=== PATIENT | male | born 1955 | race Two or more races ===

== ENCOUNTER 2017-01-26 10:37 | Inpatient (IN) | payer MEDICARE, MEDICAID ==
[~2017-01-26] VITALS: Ht 172.7 cm; Wt 77.1 kg
[2017-01-26 11:19] LABS: BASOPHILS % (AUTO) 1.8 % (0.0-2.0); EOSINOPHILS % (AUTO) 2.2 % (0.0-3.0); LYMPHOCYTES % (AUTO) 13.1 % (20.0-45.0); MEAN CORPUSCULAR HEMOGLOBIN 32.3 PG (27.0-31.0); MEAN CORPUSCULAR HGB CONC 32.9 G/DL (32.0-36.0); MEAN CORPUSCULAR VOLUME 98 FL (80-99); MEAN PLATELET VOLUME 8.5 FL (6.5-10.1); MONOCYTES % (AUTO) 10.8 % (1.0-10.0); NEUTROPHILS % (AUTO) 72.2 % (45.0-75.0); PLATELET COUNT 126 K/UL (150-450); RED BLOOD COUNT 3.51 M/UL (4.70-6.10); RED CELL DISTRIBUTION WIDTH 12.8 % (11.6-14.8); WHITE BLOOD COUNT 5.6 K/UL (4.8-10.8)
[2017-01-26] MEDS ORDERED: LACTULOSE20 GM/301 ORAL (11:22)
[2017-01-26] MEDS ORDERED: FUROSEMIDE20 M1 ORAL (11:22)
[2017-01-26] MEDS ORDERED: FISH OIL300 M1 PO (11:22)
[2017-01-26] MEDS ORDERED: ACETAMINOPHEN325 M1 ORAL (11:22)
[2017-01-26] MEDS ORDERED: CATAPRES0.2 MG ORAL (11:22)
[2017-01-26] MEDS ORDERED: TRAMADOL HCL50 MG ORAL (11:22)
[2017-01-26] MEDS ORDERED: BENADRYL25 MG ORAL (11:22)
[2017-01-26] MEDS ORDERED: FOSAMAX70 MG ORAL (11:22)
[2017-01-26] MEDS ORDERED: BUMETANIDE2 MG ORAL (11:22)
[2017-01-26] MEDS ORDERED: NITROGLYCERIN0.4 MG SL (11:22)
[2017-01-26] MEDS ORDERED: ZOFRAN4 M3 ORAL (11:22)
[2017-01-26] MEDS ORDERED: ALLOPURINOL100 M1 ORAL (11:22)
[2017-01-26] MEDS ORDERED: OMEPRAZOLE20 M2 ORAL (11:22)
[2017-01-26] MEDS ORDERED: RENVELA0.8 GM ORAL (11:22)
[2017-01-26] MEDS ORDERED: AMBIEN5 MG ORAL (11:22)
[2017-01-26] MEDS ORDERED: XIFAXAN550 MG ORAL (11:22)
[2017-01-26] MEDS ORDERED: CYCLOBENZAPRINE10 MG ORAL (11:22)
[2017-01-26] MEDS ORDERED: AMLODIPINE BESY10 MG ORAL (11:22)
[2017-01-26 11:35] LABS: ALANINE AMINOTRANSFERASE 14 U/L (3-41); ALBUMIN/GLOBULIN RATIO 1.4 (1.0-2.7); ANION GAP 13 (5-15); ASPARTATE AMINO TRANSFERASE 11 U/L (5-40); CALCIUM 9.5 mg/dL (8.6-10.2); CARBON DIOXIDE 30 mEQ/L (20-30); CHLORIDE 93 mEQ/L (98-107); CREATININE 3.9 mg/dL (0.7-1.2); GLOMERULAR FILTRATION RATE 15.8 mL/min (>60); HEMOLYSIS 8; POTASSIUM 3.9 mEQ/L (3.4-4.9); SODIUM 136 mEQ/L (135-145); TOTAL PROTEIN 6.6 g/dL (6.6-8.7)
[2017-01-26 11:36] LABS: TROPONIN I < 0.30 ng/mL (<=0.30)
[2017-01-26 11:42] VITALS: BP 123/64
[2017-01-26 11:45] LABS: CKMB < 1.5 ng/mL (< 6.7)
[2017-01-26 11:56] LABS: BILIRUBIN,DIRECT 0.4 mg/dL (0.1-0.3)
--- NOTE | 2017-01-26 11:57 | Diagnostic Imaging Report ---
Indication: Chest pain Technique: One view of the chest Comparison: none Findings: No acute infiltrates, effusions, or congestion. Tortuous calcified aorta. Normal heart size. Upper mediastinum unremarkable. Impression: No acute process.
[2017-01-26 12:19] LABS: APPEARANCE,URINE CLEAR; KETONES,URINE 1+ (NEGATIVE); LEUKOCYTE ESTERASE ,URINE 1+ (NEGATIVE); NITRITE,URINE NEGATIVE (NEGATIVE); PH,URINE 6.5 (4.5-8.0); PROTEIN,URINE 2+ (NEGATIVE); UROBILINOGEN,URINE 1 MG/DL (0.0-1.0)
--- NOTE | 2017-01-26 12:55 | Emergency Room Report ---
History of Present Illness General Chief Complaint: Altered Mental Status Source: Medical Record, EMS Present Illness HPI 62YOM BIBEMS from SNF for AMS after HD. No additional info from EMS, facility or patient as to specifics as to "AMS." Patient reportedly has elevated ammonia levels. 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 Allergies: Coded Allergies: No Known Allergies (Unverified , 01/26/17) Patient History Limited by: medical condition, other Past Medical History: other - see my HPI Past Surgical History: none Pertinent Family History: none Social History: Denies: alcohol use, drug use, smoking Immunizations: UTD Reviewed Nursing Documentation: PMH: Agreed, PSxH: Agreed Nursing Documentation-PMH Past Medical History: No History, Except For Hx Hypertension: Yes Hx Dialysis: Yes - T-TH-SAT Hx Cerebrovascular Accident: No - ESRD, CIRRHOSIS, GOUT, ETOH ABUSE Hx Seizures: Yes Review of Systems All Other Systems: limited - patient altered Physical Exam Vital Signs Date Time Temp Pulse Resp B/P Pulse Ox O2 Delivery O2 Flow Rate FiO2 01/26/17 10:52 86 18 116/67 100 Room Air Sp02 EP Interpretation: reviewed, normal General Appearance: normal inspection, well appearing, no apparent distress, alert, GCS 15, non-toxic Head: normocephalic, atraumatic Eyes: bilateral eye EOMI, bilateral eye PERRL ENT: normal ENT inspection, hearing grossly normal, normal voice Neck: normal inspection, full range of motion, supple, no bony tend Respiratory: normal inspection, lungs clear, normal breath sounds, no rhonchi, no respiratory distress, no retraction, no accessory muscle use, no wheezing Cardiovascular #1: regular rate, rhythm, no edema Gastrointestinal: normal inspection, normal bowel sounds, non tender, soft, no guarding, no hernia Genitourinary: no CVA tenderness Musculoskeletal: normal inspection, back normal, normal range of motion, Joseph' s Sign negative Neurologic: normal inspection, alert, oriented x3, responsive, central control room operator III-XII nml as tested, motor strength/tone normal, speech normal Psychiatric: normal inspection, judgement/insight normal, mood/affect normal Skin: normal inspection, normal color, no rash Medical Decision Making Diagnostic Impression: Primary Impression: Altered mental status Qualified Codes: R41.82 - Altered mental status, unspecified Additional Impressions: Hyperammonemia CKD (chronic kidney disease) Qualified Codes: N18.9 - Chronic kidney disease, unspecified ER Course Labs: No leuks. H&h stable. Elevated Ammonia level ECG is NSR with block CXR: No pulm congestion or PNA. UTox negative AMS - likely hyperammonia from known liver failure - Lactulose given in ED - Patient otherwise stable Endorsed to Dr Grant for PANEL/med/surg admit at 1255pm EKG Diagnostic Results Rate: normal, other - 1st degree AV block ST Segments: no acute changes ASA given to the pt in ED: No Rhythm Strip Diag. Results EP Interpretation: yes Rate: 68 Rhythm: NSR, no ectopy Chest X-Ray Diagnostic Results EP Interpretation: Yes Findings: no consolidation, no effusion, no pneumothorax, no acute cardiopulmonary disease Number of Views: 1 Last Vital Signs Date Time Temp Pulse Resp B/P Pulse Ox O2 Delivery O2 Flow Rate FiO2 01/26/17 11:42 69 14 123/64 100 Room Air Status: improved Disposition: ADMITTED INPATIENT Condition: Serious Referrals: NON PHYSICIAN (PCP) JOHNNIE KAPLAN M.D. Jan 26, 2017 12:55
[2017-01-26] MEDS ORDERED: Lactulose 20gm/30ml UDC ORAL ONE (13:00)
[2017-01-26 13:08] LABS: BACTERIA,URINE FEW /HPF; ICTOTEST NEGATIVE; RBC,URINE 0-2 /HPF (0 - 0); SQUAMOUS EPITHELIAL CELL,UR OCCASIONAL /LPF (NONE/OCC)
[2017-01-26 13:57] VITALS: BP 121/61
--- NOTE | 2017-01-26 16:23 | Consultation ---
Consult Note Consult Note asked to eval for dialysis management 62YOM BIBEMS from SNF for AMS after HD. No additional info from EMS, facility or patient as to specifics as to "AMS." Patient reportedly has elevated ammonia levels. 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 Assessment/Plan Encephalopathy acute due to Cirrhosis ESRD on HD Wed- HTN Anemia Plan: renal diet- Lactulose dialysis on monitor BP LILLI VELEZ Jan 26, 2017 16:23
[2017-01-26] MEDS ORDERED: cloNIDine 0.2mg Tab ORAL PRN (16:30)
[2017-01-26 16:39] VITALS: BP 132/74
[2017-01-26] MEDS ORDERED: Lactulose 20gm/30ml UDC ORAL SCH (17:00)
[2017-01-26 17:51] LABS: BASOPHILS % (AUTO) 2.2 % (0.0-2.0); EOSINOPHILS % (AUTO) 2.7 % (0.0-3.0); LYMPHOCYTES % (AUTO) 23.6 % (20.0-45.0); MEAN CORPUSCULAR HEMOGLOBIN 34.8 PG (27.0-31.0); MEAN CORPUSCULAR HGB CONC 35.4 G/DL (32.0-36.0); MEAN CORPUSCULAR VOLUME 98 FL (80-99); MEAN PLATELET VOLUME 9.2 FL (6.5-10.1); NEUTROPHILS % (AUTO) 59.6 % (45.0-75.0); PLATELET COUNT 115 K/UL (150-450); RED BLOOD COUNT 3.22 M/UL (4.70-6.10); RED CELL DISTRIBUTION WIDTH 12.9 % (11.6-14.8); WHITE BLOOD COUNT 5.4 K/UL (4.8-10.8)
--- NOTE | 2017-01-26 17:52 | Consultation ---
Consult Note Consult Note NEUROLOGY CONSULTATION: Full note dictated #[id number] 62 y/o, RH, HM, with PH of cirrhosis of the liver associated with alcohol use and ESRD on HD. He was recently changed from Lactulose to Krisalose. This morning he was taken to the HD unit by his and seemed to be minimally confused. While getting HD he was more confused and agitated and he was thus sent to the [facility] ER. ON EXAM: Mild problems with orientation and memory. Right NLF flat. Globally decreased reflexes. Minimal asterixis. LABS: Ammonia elevated 74 CR 3.9 Mild UTI. IMPRESSION: 1. Mild metabolic encephalopathy most probably related to hepatic and renal dysfunction. 2. Right NLF flattening unexplained. REC: 1. Treatment of hepatic encephalopathy with increased doses of lactulose. 2. Rx of renal dysfunction as per Dr. Josue. 3. W/U for other encephalopathy. 4. CT of brain to exclude intracranial path. Mercy Major M.D., M.S.P.H. MERCY MAJOR Jan 26, 2017 17:52
[2017-01-26 18:11] LABS: ALBUMIN/GLOBULIN RATIO 1.3 (1.0-2.7); CALCIUM 9.5 mg/dL (8.6-10.2); CREATININE 4.3 mg/dL (0.7-1.2); GLOMERULAR FILTRATION RATE 14.1 mL/min (>60); POTASSIUM 3.9 mEQ/L (3.4-4.9); TOTAL PROTEIN 6.5 g/dL (6.6-8.7)
[2017-01-26 18:42] LABS: BILIRUBIN,DIRECT 0.4 mg/dL (0.1-0.3)
[2017-01-26] MEDS: Renvela 800mg Pkt ORAL SCH (18:47)
[2017-01-26] MEDS: Allopurinol 100mg Tab ORAL SCH (18:47)
[2017-01-26] MEDS: Lactulose 20gm/30ml UDC ORAL SCH (18:48)
[2017-01-26 20:00] VITALS: BP 137/67
[2017-01-26] MEDS ORDERED: Lactulose 20gm/30ml UDC ORAL PRN (20:30)
[2017-01-27] VITALS: BP 125/69
--- NOTE | 2017-01-27 01:28 | Consultation ---
DATE OF CONSULTATION: 01/26/2017 NEUROLOGY CONSULTATION CONSULTING PHYSICIAN: Jose Major M.D. REQUESTING PHYSICIAN: Driss Noriega M.D. HISTORY: Mr. Aman Baig is a 62-year-old, right-handed, gentleman, who does have a past history of cirrhosis of the liver associated with alcohol use and end-stage renal disease for which he is on hemodialysis. He was functioning relatively well until this morning when his noticed that when she was driving him to the hemodialysis unit, he was a little confused. Of note is that, he was recently changed from lactulose to Kristalose for his hepatic dysfunction. While he was getting hemodialysis, he became much more confused and agitated and as a result of that, he was sent to the [facility] Emergency Room. On being evaluated in the emergency room, he was noted to have a significant hyperammonemia. Since he has been here, he feels a little better and he feels that the mind is now much more clear. He does not remember the exact details of what happened in the hemodialysis unit. He denies any weakness on one side or the other, numbness on one side or the other, problems with speech, problems with language, problems with vision, or any other neurological symptoms. He also denies any history of prior strokes, seizures, or other neurological problems. PAST MEDICAL HISTORY: Significant for hypertension, anemia of chronic disease, cirrhosis of the liver related to alcoholism, and chronic kidney disease secondary to IgA nephropathy for which he is on hemodialysis on Tuesdays, , and Saturdays. FAMILY HISTORY: Nothing significant with no family history of neurological disease. PERSONAL HISTORY: Home: He lives with his . 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 Habits: He used to drink large quantities of alcohol in the past, but stopped drinking quite a few years ago. He denies the use of tobacco or illicit drugs. PRESENT MEDICATIONS: Includes Norvasc, allopurinol, lactulose, Renvela, Catapres, and Tylenol. PHYSICAL EXAMINATION: GENERAL: He is a well-developed, well-nourished, pleasant gentleman, lying in bed, in no acute distress. VITAL SIGNS: Pulse 66 per minute, blood pressure 132/74 mmHg, respirations 20 per minute, and temperature 97.3 degrees Fahrenheit. HEAD: Normocephalic and atraumatic. NECK: No neck rigidity was observed. EENT: Benign. NEUROLOGICAL EXAMINATION: MENTAL STATUS EXAMINATION: He was awake and alert. He was oriented to person, place, and time except for the exact date. He was able to recall 3/3 words immediately after 1 minute and 3 minutes. He was able to remember presidents Trump and Obama spontaneously, but needed hints to remember through President Barrington. He was unable to remember presidents prior to Barrington. His mathematical skills were fairly good. His visuospatial function was preserved. SPEECH: He had no dysarthria. LANGUAGE: He had no aphasia. Taking into account that [place] is his second language. CRANIAL NERVE EXAMINATION: II: The visual medeiros were intact to confrontation testing. III, IV & : The external ocular movements were full and the pupils 3 mm in diameter, equal, round, regular and reactive to light. V: He had normal facial sensations and the temporales, masseters, and pterygoids function normally. VII: He had flattening of the right nasolabial fold and a mild right VII central facial paresis. VIII: He was able to hear well bilaterally and had no nystagmus. IX: The palate moved symmetrically on phonation. X: He had no hoarseness of voice. XI: The sternocleidomastoids and trapezii functioned normally. XII: The tongue was midline without any fasciculations or atrophy. MOTOR SYSTEM: The tone was normal in all four extremities. Examination of muscle mass revealed no focal wasting. Examination of power revealed grade 5/5 power in all muscle groups tested. SENSORY EXAMINATION: He had intact sensations to pinprick, light touch, and graphesthesia. COORDINATION: He performed well on [id number] and elas-ls-[id number] testing. REFLEXES: Trace+ and bilaterally symmetrical at the biceps, triceps, brachioradialis, and knees, 0 at both ankles. The plantar responses were flexor bilaterally. STANCE: He had a minimally wide-based, but stable stance. GAIT: He walked with a minimally wide-based, but stable gait. ABNORMAL MOVEMENTS: He had a G Trace/4 asterixis of both upper extremities. DIAGNOSTIC IMPRESSION: 1. Mr. Aman Baig is a 62-year-old, right-handed, gentleman, who does have a past history of hypertension, cirrhosis of the liver and end-stage renal disease for which he is hemodialysis dependent, who was recently changed from lactulose to Kristalose. This morning, when he was taken to the hemodialysis unit by his , he was noted to be minimally confused and while getting dialysis, he got significantly more confused and agitated. As a result of that, he was sent to the [facility] Emergency Room. He has improved significantly since then. 2. On neurological examination, at this time, he does demonstrate mild problems with orientation and memory. He also has flattening of the right nasolabial fold and a mild right VII central facial paresis. His deep tendon reflexes are globally diminished. He stands and walks with a minimally wide-base. He also has mild G trace/4 asterixis involving his upper extremities. 3. Laboratory data revealed that his ammonia is elevated to 74. His alkaline phosphatase is elevated to 164. His BUN is normal at 17, but his creatinine is elevated at 3.9. His hemoglobin is down to 11.3 and his urinalysis reveals 1+ leukocyte esterase, 0 to 2 red blood cells, and 2 to 4 white blood cells per high-power field, and a few urinary bacteria. 4. The patient's history, neurological examination, and laboratory data are most compatible with mild metabolic encephalopathy most probably related to hepatic and renal dysfunction. It is unclear, if his mild urinary tract infection could also be contributing to this problem. 5. He does have right nasolabial fold flattening and a mild right VII central facial paresis, which is unexplained at this point in time. RECOMMENDATIONS: 1. Agree with management thus far. 2. Agree with increasing the dose of lactulose to help the patient with the hepatic component of his encephalopathy. 3. Treatment of renal dysfunction as per Dr. Josue. 4. The patient should be worked up thoroughly for other treatable causes of encephalopathy with in addition to laboratory tests already done, a B12 level, folate level, vitamin D level, RPR, glycohemoglobin, TSH, and ESR. 5. A CT scan of the brain without contrast will be ordered to exclude intracranial pathology because of the patient's focal neurological deficit. Thank you for entrusting me with the care of Mr. Baig I shall follow him with you. Jose Major M.D., M.S.P.H. DR: MARINA JOB#: [id number] MTDD
[2017-01-27 04:00] VITALS: BP 123/66
[2017-01-27 07:34] LABS: BASOPHILS % (AUTO) 1.7 % (0.0-2.0); EOSINOPHILS % (AUTO) 5.7 % (0.0-3.0); LYMPHOCYTES % (AUTO) 34.4 % (20.0-45.0); MEAN CORPUSCULAR HEMOGLOBIN 33.3 PG (27.0-31.0); MEAN CORPUSCULAR HGB CONC 33.3 G/DL (32.0-36.0); MEAN CORPUSCULAR VOLUME 100 FL (80-99); MEAN PLATELET VOLUME 9.5 FL (6.5-10.1); MONOCYTES % (AUTO) 15.9 % (1.0-10.0); NEUTROPHILS % (AUTO) 42.4 % (45.0-75.0); PLATELET COUNT 130 K/UL (150-450); RED BLOOD COUNT 3.17 M/UL (4.70-6.10); RED CELL DISTRIBUTION WIDTH 13.1 % (11.6-14.8); WHITE BLOOD COUNT 4.7 K/UL (4.8-10.8)
[2017-01-27 07:53] VITALS: BP 132/72
[2017-01-27 08:00] LABS: HEMOLYSIS 4; IRON 136 ug/dL (59-158); TOTAL IRON BINDING CAPACITY 249 ug/dL (250-400)
[2017-01-27] MEDS: Renvela 800mg Pkt ORAL SCH ×3 (08:06→17:49)
[2017-01-27] MEDS: Allopurinol 100mg Tab ORAL SCH ×2 (08:06→17:49)
[2017-01-27 08:08] LABS: HEMOGLOBIN A1C 4.4 % (< 6.0)
[2017-01-27] MEDS: Lactulose 20gm/30ml UDC ORAL SCH ×3 (08:11→17:49)
[2017-01-27 08:50] LABS: ALBUMIN/GLOBULIN RATIO 1.5 (1.0-2.7); CALCIUM 9.4 mg/dL (8.6-10.2); CREATININE 5.4 mg/dL (0.7-1.2); GLOMERULAR FILTRATION RATE 10.9 mL/min (>60); MAGNESIUM 2.3 mg/dL (1.7-2.5); PHOSPHORUS 4.4 mg/dL (2.5-4.8); POTASSIUM 4.1 mEQ/L (3.4-4.9); TOTAL PROTEIN 5.6 g/dL (6.6-8.7)
--- NOTE | 2017-01-27 10:41 | Diagnostic Imaging Report ---
Indication: Altered metal status Technique: spiral acquisitions obtained through the brain. Angled axial and coronal 5 x 5 mm slices were reconstructed. No IV contrast utilized. Radiation dose was minimized using automated exposure control Total dose length product 1383 mGycm. CTDIvol(s) 70 mGy Comparison: none FINDINGS: No acute hemorrhage or edema. No mass effect or midline shift. There is age-related enlargement of the ventricles and extra axial CSF spaces. There is periventricular deep white matter ischemic change. Normal chase-white differentiation. Visualized orbits are unremarkable. Visualized sinuses are unremarkable. Intact calvarium. There is a cortical calcification in the medial left frontal lobe IMPRESSION: Chronic and age-related changes. Negative for acute intracranial bleed or mass effect Left frontal lobe cortical calcification, may indicate old cysticercosis The CT scanner at [facility] is accredited by the [employer] and the scans are performed using protocols designed to limit radiation exposure to as low as reasonably achievable to attain images of sufficient resolution adequate for diagnostic evaluation
[2017-01-27 11:43] VITALS: BP 128/62
--- NOTE | 2017-01-27 14:44 | General Progress Note ---
Assessment/Plan Status: stable Status Narrative improved Assessment/Plan status: Encephalopathy acute due to Cirrhosis ESRD on HD HTN Anemia Plan: renal diet- Lactulose dialysis on monitor BP Subjective ROS Limited/Unobtainable: No Constitutional: Reports: malaise Allergies: Coded Allergies: No Known Allergies (Unverified , 01/26/17) Objective Last 24 Hour Vital Signs Date Time Temp Pulse Resp B/P Pulse Ox O2 Delivery O2 Flow Rate FiO2 01/27/17 11:43 97.9 73 18 128/62 99 Room Air 01/27/17 08:05 70 132/72 01/27/17 07:53 98.1 70 18 132/72 100 Room Air 01/27/17 04:00 77 01/27/17 04:00 97.9 73 20 123/66 99 Room Air 01/27/17 00:00 75 01/27/17 00:00 98.0 78 20 125/69 100 Room Air 01/26/17 20:00 81 01/26/17 20:00 97.9 78 20 137/67 99 Room Air 01/26/17 16:39 97.3 66 20 132/74 100 Room Air 01/26/17 15:34 98.0 69 14 121/61 100 Room Air 80 Intake and Output 01/26/17 01/27/17 19:00 07:00 Intake Total 250 ml Output Total 20 ml Balance 230 ml Intake Oral 250 ml Output Urine Total 20 ml # Voids 2 # Bowel Movements 2 Laboratory Tests 01/26/17 17:30: White Blood Count 5.4, Red Blood Count 3.22L, Hemoglobin 11.2L, Hematocrit 31.6L , Mean Corpuscular Volume 98, Mean Corpuscular Hemoglobin 34.8H, Mean Corpuscular Hemoglobin Concent 35.4, Red Cell Distribution Width 12.9, Platelet Count 115L, Mean Platelet Volume 9.2, Neutrophils (%) (Auto) 59.6, Lymphocytes ( %) (Auto) 23.6, Monocytes (%) (Auto) 12.0H, Eosinophils (%) (Auto) 2.7, Basophils (%) (Auto) 2.2H, Sodium Level 136, Potassium Level 3.9, Chloride Level 93L, Carbon Dioxide Level 29, Anion Gap 14, Blood Urea Nitrogen 20, Creatinine 4.3H, Estimat Glomerular Filtration Rate 14.1, Glucose Level 92, Calcium Level 9.5, Total Bilirubin 1.2, Direct Bilirubin 0.4H, Aspartate Amino Transf (AST/SGOT) 11, Alanine Aminotransferase (ALT/SGPT) 13, Alkaline Phosphatase 160H, Ammonia 57, Total Protein 6.5L, Albumin 3.7, Globulin 2.8, Albumin/Globulin Ratio 1.3 01/26/17 17:52: Erythrocyte Sedimentation Rate 75H, Vitamin D 25-Hydroxy [Pending], 25-Hydroxy Vitamin D2 [Pending], 25-Hydroxy Vitamin D3 [Pending], Thyroid Stimulating Hormone (TSH) 1.770, Rapid Plasma Reagin Non reactive 01/27/17 05:15: White Blood Count 4.7L, Red Blood Count 3.17L, Hemoglobin 10.5L, Hematocrit 31.7L, Mean Corpuscular Volume 100H, Mean Corpuscular Hemoglobin 33.3H, Mean Corpuscular Hemoglobin Concent 33.3, Red Cell Distribution Width 13.1, Platelet Count 130L, Mean Platelet Volume 9.5, Neutrophils (%) (Auto) 42.4L, Lymphocytes (%) (Auto) 34.4, Monocytes (%) (Auto) 15.9H, Eosinophils (%) (Auto) 5.7H, Basophils (%) (Auto) 1.7, Sodium Level 138, Potassium Level 4.1, Chloride Level 93L, Carbon Dioxide Level 26, Anion Gap 19H, Blood Urea Nitrogen 28H, Creatinine 5.4H, Estimat Glomerular Filtration Rate 10.9, Glucose Level 73L, Calcium Level 9.4, Total Bilirubin 1.0, Aspartate Amino Transf (AST/SGOT) 9, Alanine Aminotransferase (ALT/SGPT) 12, Alkaline Phosphatase 151H, Ammonia 60, Total Protein 5.6L, Albumin 3.4L, Globulin 2.2, Albumin/Globulin Ratio 1.5, Hemoglobin A1c 4.4, Uric Acid 3.0, Phosphorus Level 4.4, Magnesium Level 2.3, Iron Level 136, Total Iron Binding Capacity 249L, Percent Iron Saturation 55H, Unsaturated Iron Binding 113, Ferritin 289H, Gamma Glutamyl Transpeptidase 184H , Triglycerides Level 55, Cholesterol Level 206H, LDL Cholesterol 91, HDL Cholesterol 104H, Cholesterol/HDL Ratio 2.0L, Vitamin B12 Level 923, Folate [ Pending] Height (Feet): 5 Height (Inches): 8.00 Weight (Pounds): 170 General Appearance: no apparent distress Neurologic: other - MS clearing Objective no change in PE LILLI VELEZ Jan 27, 2017 14:44
[2017-01-27 16:02] VITALS: BP 123/66
--- NOTE | 2017-01-27 17:00 | History and Physical Report ---
DATE OF ADMISSION: 01/26/2017 HISTORY OF PRESENT ILLNESS: The patient comes in because of altered mental status and confusion. The patient has elevated ammonia level. The patient also has history of cirrhosis, alcohol use. The patient has also end-stage renal disease, however is on dialysis. So, the patient again admitted for altered mental status after dialysis and hyperammonemia. Denies abdominal pain. Denies nausea, vomiting or diarrhea. No fever or chills. According to the at bedside, the patient has been weak for the last week and there is some ataxia. PAST MEDICAL HISTORY: Significant for end-stage renal disease on hemodialysis, cirrhosis of the liver, hypertension, alcohol abuse, history of gout and osteoporosis. PAST SURGICAL HISTORY: The patient has a history of surgery related to dialysis shunt. The patient has a hemodialysis access on the left forearm. Also, the patient has appendectomy. MEDICATIONS: The patient takes amlodipine, allopurinol, bumetanide, and clonidine. ALLERGIES: The patient allergies to Lasix, but again this could be a adverse drug effect rather than a true allergy. SOCIAL HISTORY: The patient denies history of smoking. He does have history of alcohol abuse. Denies drug abuse. He lives at home with . He is . REVIEW OF SYSTEMS: HEENT: Denies headaches. Respiratory: Denies shortness of breath. Denies cough. Cardiovascular: Denies chest pain. Gastrointestinal: Denies nausea, vomiting, or diarrhea. Denies abdominal pain. Extremities: He does have mild back pain, which is chronic. Central Nervous System: Denies change in vision or speech pattern, but did have confusion and ataxia in lower extremities for the past week. PHYSICAL EXAMINATION: VITAL SIGNS: Temperature is 97.9 degrees, pulse is 78, and blood pressure 137/67. HEENT: PERRLA. NECK: Supple. No lymphadenopathy. CHEST: Clear to auscultation. GASTROINTESTINAL: Soft. Nontender. No organomegaly. Positive bowel sounds. EXTREMITIES: No edema. CENTRAL NERVOUS SYSTEM: Reflexes are equal on both sides. Moves all four extremities. Sensation intact to light touch. Cranial nerves II through XII are intact. LABORATORY AND DIAGNOSTIC DATA: WBC of 5.2, hemoglobin 11.3 and platelet of 126,000. Sodium 138, potassium 4.1, BUN of 20, creatinine 5.4 and glucose of 73. Alkaline phosphatase of 151. ASSESSMENT AND PLAN: Altered mental status. Albumin is elevated. The patient has cirrhosis and electrolyte imbalance. I have asked Dr. Josue, Dr. Major, Dr. Mann and Dr. Heard to see the patient for the above-mentioned diagnoses and treatment and also to rule out any infectious etiology causing altered mental status and Dr. Major also be involved with finding of reason for altered mental status as well. Driss Noriega M.D. DR: MARCIA JOB#: [id number] CC:
--- NOTE | 2017-01-27 17:14 | Neurology Progress Note ---
Interim History Interim History Interim History Mr. Baig feels much better today. The mind has cleared up. He denies any confusion or disorientation. He also denies any weakness, numbness, visual problems or memory problems. He is eager to go home. Review of Systems Neuro Review of Systems Benign. Objective Physical Exam Last Vital Signs Date Time Temp Pulse Resp B/P Pulse Ox O2 Delivery O2 Flow Rate FiO2 01/27/17 16:02 97.5 73 18 123/66 99 Room Air Laboratory Tests Test 01/26/17 17:30 01/26/17 17:52 01/27/17 05:15 White Blood Count 5.4 K/UL (4.8-10.8) 4.7 K/UL (4.8-10.8) L Red Blood Count 3.22 M/UL (4.70-6.10) L 3.17 M/UL (4.70-6.10) L Hemoglobin 11.2 G/DL (14.2-18.0) L 10.5 G/DL (14.2-18.0) L Hematocrit 31.6 % (42.0-52.0) L 31.7 % (42.0-52.0) L Mean Corpuscular Volume 98 FL (80-99) 100 FL (80-99) H Mean Corpuscular Hemoglobin 34.8 PG (27.0-31.0) H 33.3 PG (27.0-31.0) H Mean Corpuscular Hemoglobin Concent 35.4 G/DL (32.0-36.0) 33.3 G/DL (32.0-36.0) Red Cell Distribution Width 12.9 % (11.6-14.8) 13.1 % (11.6-14.8) Platelet Count 115 K/UL (150-450) L 130 K/UL (150-450) L Mean Platelet Volume 9.2 FL (6.5-10.1) 9.5 FL (6.5-10.1) Neutrophils (%) (Auto) 59.6 % (45.0-75.0) 42.4 % (45.0-75.0) L Lymphocytes (%) (Auto) 23.6 % (20.0-45.0) 34.4 % (20.0-45.0) Monocytes (%) (Auto) 12.0 % (1.0-10.0) H 15.9 % (1.0-10.0) H Eosinophils (%) (Auto) 2.7 % (0.0-3.0) 5.7 % (0.0-3.0) H Basophils (%) (Auto) 2.2 % (0.0-2.0) H 1.7 % (0.0-2.0) Sodium Level 136 mEQ/L (135-145) 138 mEQ/L (135-145) Potassium Level 3.9 mEQ/L (3.4-4.9) 4.1 mEQ/L (3.4-4.9) Chloride Level 93 mEQ/L (98-107) L 93 mEQ/L (98-107) L Carbon Dioxide Level 29 mEQ/L (20-30) 26 mEQ/L (20-30) Anion Gap 14 (5-15) 19 (5-15) H Blood Urea Nitrogen 20 mg/dL (7-23) 28 mg/dL (7-23) H Creatinine 4.3 mg/dL (0.7-1.2) H 5.4 mg/dL (0.7-1.2) H Estimat Glomerular Filtration Rate 14.1 mL/min (>60) 10.9 mL/min (>60) Glucose Level 92 mg/dL (74-106) 73 mg/dL (74-106) L Calcium Level 9.5 mg/dL (8.6-10.2) 9.4 mg/dL (8.6-10.2) Total Bilirubin 1.2 mg/dL (0.0-1.2) 1.0 mg/dL (0.0-1.2) Direct Bilirubin 0.4 mg/dL (0.1-0.3) H Aspartate Amino Transf (AST/SGOT) 11 U/L (5-40) 9 U/L (5-40) Alanine Aminotransferase (ALT/SGPT) 13 U/L (3-41) 12 U/L (3-41) Alkaline Phosphatase 160 U/L (40-129) H 151 U/L (40-129) H Ammonia 57 umol/L (16-60) 60 umol/L (16-60) Total Protein 6.5 g/dL (6.6-8.7) L 5.6 g/dL (6.6-8.7) L Albumin 3.7 g/dL (3.5-5.2) 3.4 g/dL (3.5-5.2) L Globulin 2.8 g/dL 2.2 g/dL Albumin/Globulin Ratio 1.3 (1.0-2.7) 1.5 (1.0-2.7) Erythrocyte Sedimentation Rate 75 MM/HR (0-20) H Vitamin D 25-Hydroxy Pending 25-Hydroxy Vitamin D2 Pending 25-Hydroxy Vitamin D3 Pending Thyroid Stimulating Hormone (TSH) 1.770 uIU/mL (0.300-4.500) Rapid Plasma Reagin Non reactive (Non Reactive) Hemoglobin A1c 4.4 % (< 6.0) Uric Acid 3.0 mg/dL (3.0-7.5) Phosphorus Level 4.4 mg/dL (2.5-4.8) Magnesium Level 2.3 mg/dL (1.7-2.5) Iron Level 136 ug/dL (59-158) Total Iron Binding Capacity 249 ug/dL (250-400) L Percent Iron Saturation 55 % (15-50) H Unsaturated Iron Binding 113 ug/dL (112-346) Ferritin 289 ng/mL (10-230) H Gamma Glutamyl Transpeptidase 184 U/L (8-61) H Triglycerides Level 55 mg/dL (< 150) Cholesterol Level 206 mg/dL (< 200) H LDL Cholesterol 91 mg/dL (60-99) HDL Cholesterol 104 mg/dL (> 60) H Cholesterol/HDL Ratio 2.0 (3.3-4.4) L Vitamin B12 Level 923 pg/mL (211-946) Folate Pending Neurologic Exam Objective PHYSICAL EXAMINATION: GENERAL: He is a well-developed, well-nourished, pleasant gentleman, lying in bed, in no acute distress. HEAD: Normocephalic and atraumatic. NECK: No neck rigidity was observed. EENT: Benign. NEUROLOGICAL EXAMINATION: MENTAL STATUS EXAMINATION: He was awake and alert. He was oriented to person, place, and time. He was able to recall 3/3 words immediately after 1 minute and 3 minutes. He was able to remember presidents Trump and Obama spontaneously, but needed hints to remember through President Barrington. He was unable to remember presidents prior to Barrington. His mathematical skills were fairly good. His visuospatial function was preserved. SPEECH: He had no dysarthria. LANGUAGE: He had no aphasia. Taking into account that Telugu is his second language. CRANIAL NERVE EXAMINATION: II: The visual medeiros were intact to confrontation testing. III, IV & : The external ocular movements were full and the pupils 3 mm in diameter, equal, round, regular and reactive to light. V: He had normal facial sensations and the temporales, masseters, and pterygoids function normally. VII: He had flattening of the right nasolabial fold and a mild right VII central facial paresis. VIII: He was able to hear well bilaterally and had no nystagmus. IX: The palate moved symmetrically on phonation. X: He had no hoarseness of voice. XI: The sternocleidomastoids and trapezii functioned normally. XII: The tongue was midline without any fasciculations or atrophy. MOTOR SYSTEM: The tone was normal in all four extremities. Examination of muscle mass revealed no focal wasting. Examination of power revealed grade 5/5 power in all muscle groups tested. SENSORY EXAMINATION: He had intact sensations to pinprick, light touch, and graphesthesia. COORDINATION: He performed well on [id number] and dmpv-ns-[id number] testing. REFLEXES: Trace+ and bilaterally symmetrical at the biceps, triceps, brachioradialis, and knees, 0 at both ankles. The plantar responses were flexor bilaterally. STANCE: He had a minimally wide-based, but stable stance. GAIT: He walked with a minimally wide-based, but stable gait. ABNORMAL MOVEMENTS: He had no asterixis. Impression/Recommendations Diagnostic Impression 1. Mr. Aman Baig is a 62-year-old, right-handed, gentleman, who does have a past history of hypertension, cirrhosis of the liver and end-stage renal disease for which he is hemodialysis dependent, who was recently changed from lactulose to Kristalose. On the morning of 01/26/17 when he was taken to the hemodialysis unit by his , he was noted to be minimally confused and while getting dialysis, he got significantly more confused and agitated. As a result of that, he was sent to the [facility] Emergency Room. 2. He feels much better today. The mind has ckeared up and he feels that he is close to his normal self. 3. On neurological examination, at this time, he does demonstrate mild problems with memory. He also has flattening of the right nasolabial fold and a mild right VII central facial paresis. His deep tendon reflexes are globally diminished. He stands and walks with a minimally wide-base. 4. Laboratory data on my initial evaluation revealed that his ammonia was elevated to 74. His alkaline phosphatase was elevated to 164. His BUN was normal at 17, but his creatinine was elevated at 3.9. His hemoglobin was down to 11.3 and his urinalysis revealed 1+ leukocyte esterase, 0 to 2 red blood cells, and 2 to 4 white blood cells per high-power field, and a few urinary bacteria. 5. His repeat ammonia on 01/27/17 was [address] 6[address] The CT of the brain reveals a calcification in the left frontal area but no other pathology. 7. The patient's history, neurological examination, and laboratory data are most compatible with mild metabolic encephalopathy most probably related to hepatic and renal dysfunction. It is unclear, if his mild urinary tract infection could also be contributing to this problem. 8. He does have right nasolabial fold flattening and a mild right VII central facial paresis, which is unexplained, however intracranial pathology of significance has been excluded with a brain CT. Recommendations 1. Continue present management. 2. Continue higher dose of lactulose. 3. Treatment of renal dysfunction as per Dr. Josue. 4. Observe. Jose Major M.D., M.S.P.JOSE ARRIOLA Jan 27, 2017 17:14
--- NOTE | 2017-01-27 18:35 | Cardiology Report ---
APPROVED REPORT EKG Measurement Heart [id number] Sinus rhythm with 1st degree AV block Voltage criteria for left ventricular hypertrophy Cannot rule out Septal infarct, age undetermined Abnormal ECG
[2017-01-27 20:00] VITALS: BP 127/76
--- NOTE | 2017-01-27 22:13 | General Progress Note ---
Assessment/Plan Assessment/Plan GI CONSULT Dictated Thank you Josias Heard. Subjective Allergies: Coded Allergies: No Known Allergies (Unverified , 01/26/17) Objective Last 24 Hour Vital Signs Date Time Temp Pulse Resp B/P Pulse Ox O2 Delivery O2 Flow Rate FiO2 01/27/17 20:00 98.2 82 20 127/76 98 Room Air 01/27/17 16:02 97.5 73 18 123/66 99 Room Air 01/27/17 16:00 88 01/27/17 12:00 72 01/27/17 11:43 97.9 73 18 128/62 99 Room Air 01/27/17 08:05 70 132/72 01/27/17 08:00 70 01/27/17 07:53 98.1 70 18 132/72 100 Room Air 01/27/17 04:00 77 01/27/17 04:00 97.9 73 20 123/66 99 Room Air 01/27/17 00:00 75 01/27/17 00:00 98.0 78 20 125/69 100 Room Air Intake and Output 01/26/17 01/27/17 19:00 07:00 Intake Total 250 ml Output Total 20 ml Balance 230 ml Intake Oral 250 ml Output Urine Total 20 ml # Voids 2 # Bowel Movements 2 Laboratory Tests 01/27/17 05:15: White Blood Count 4.7L, Red Blood Count 3.17L, Hemoglobin 10.5L, Hematocrit 31.7L, Mean Corpuscular Volume 100H, Mean Corpuscular Hemoglobin 33.3H, Mean Corpuscular Hemoglobin Concent 33.3, Red Cell Distribution Width 13.1, Platelet Count 130L, Mean Platelet Volume 9.5, Neutrophils (%) (Auto) 42.4L, Lymphocytes (%) (Auto) 34.4, Monocytes (%) (Auto) 15.9H, Eosinophils (%) (Auto) 5.7H, Basophils (%) (Auto) 1.7, Sodium Level 138, Potassium Level 4.1, Chloride Level 93L, Carbon Dioxide Level 26, Anion Gap 19H, Blood Urea Nitrogen 28H, Creatinine 5.4H, Estimat Glomerular Filtration Rate 10.9, Glucose Level 73L, Hemoglobin A1c 4.4, Uric Acid 3.0, Calcium Level 9.4, Phosphorus Level 4.4, Magnesium Level 2.3, Iron Level 136, Total Iron Binding Capacity 249L, Percent Iron Saturation 55H, Unsaturated Iron Binding 113, Ferritin 289H, Total Bilirubin 1.0, Gamma Glutamyl Transpeptidase 184H, Aspartate Amino Transf (AST/ SGOT) 9, Alanine Aminotransferase (ALT/SGPT) 12, Alkaline Phosphatase 151H, Ammonia 60, Total Protein 5.6L, Albumin 3.4L, Globulin 2.2, Albumin/Globulin Ratio 1.5, Triglycerides Level 55, Cholesterol Level 206H, LDL Cholesterol 91, HDL Cholesterol 104H, Cholesterol/HDL Ratio 2.0L, Vitamin B12 Level 923, Folate [Pending] Height (Feet): 5 Height (Inches): 8.00 Weight (Pounds): 170 JOSIAS HEARD Jan 27, 2017 22:13
[2017-01-28] VITALS: BP 123/65
[2017-01-28 04:00] VITALS: BP 126/65
[2017-01-28 08:00] VITALS: BP 136/67
[2017-01-28 08:45] VITALS: BP 134/77
[2017-01-28] MEDS: Allopurinol 100mg Tab ORAL SCH (08:47)
[2017-01-28] MEDS: Lactulose 20gm/30ml UDC ORAL SCH (08:47)
[2017-01-28] MEDS: Renvela 800mg Pkt ORAL SCH (08:47)
[2017-01-28] MEDS ORDERED: D5 1/2NS 1000ml IV ONE (09:52)
--- NOTE | 2017-01-28 10:50 | Neurology Progress Note ---
Interim History Interim History Interim History Mr. Baig feels much better. The mind is clear. He denies any confusion or disorientation. He denies any new neurologic symptoms. He also denies any weakness, numbness, visual problems or memory problems. He is undergoing HD now. He is eager to go home. Review of Systems Neuro Review of Systems Benign. Objective Physical Exam Last Vital Signs Date Time Temp Pulse Resp B/P Pulse Ox O2 Delivery O2 Flow Rate FiO2 01/28/17 08:45 97.7 75 134/77 Room Air 01/28/17 08:00 20 98 Neurologic Exam Objective PHYSICAL EXAMINATION: GENERAL: He is a well-developed, well-nourished, pleasant gentleman, lying in bed, in no acute distress, undergoing HD. HEAD: Normocephalic and atraumatic. NECK: No neck rigidity was observed. EENT: Benign. NEUROLOGICAL EXAMINATION: MENTAL STATUS EXAMINATION: He was awake and alert. He was oriented to person, place, and time. He was able to recall 3/3 words immediately after 1 minute and 3 minutes. He was able to remember presidents Trump through Marte Senior with hints. His mathematical skills were fairly good. His visuospatial function was preserved. SPEECH: He had no dysarthria. LANGUAGE: He had no aphasia. Taking into account that Portuguese is his second language. CRANIAL NERVE EXAMINATION: II: The visual medeiros were intact to confrontation testing. III, IV & : The external ocular movements were full and the pupils 3 mm in diameter, equal, round, regular and reactive to light. V: He had normal facial sensations and the temporales, masseters, and pterygoids function normally. VII: He had flattening of the right nasolabial fold and a mild right VII central facial paresis. VIII: He was able to hear well bilaterally and had no nystagmus. IX: The palate moved symmetrically on phonation. X: He had no hoarseness of voice. XI: The sternocleidomastoids and trapezii functioned normally. XII: The tongue was midline without any fasciculations or atrophy. MOTOR SYSTEM: The tone was normal in all four extremities. Examination of muscle mass revealed no focal wasting. Examination of power revealed grade 5/5 power in all muscle groups tested. SENSORY EXAMINATION: He had intact sensations to pinprick, light touch, and graphesthesia. COORDINATION: He performed well on [id number]-hc-[id number] and nssc-vz-rwra testing. REFLEXES: Trace+ and bilaterally symmetrical at the biceps, triceps, brachioradialis, and knees, 0 at both ankles. The plantar responses were flexor bilaterally. STANCE: He had a minimally wide-based, but stable stance. GAIT: He walked with a minimally wide-based, but stable gait. ABNORMAL MOVEMENTS: He had no asterixis. Impression/Recommendations Diagnostic Impression 1. Mr. Aman Baig is a 62-year-old, right-handed, gentleman, who does have a past history of hypertension, cirrhosis of the liver and end-stage renal disease for which he is hemodialysis dependent, who was recently changed from lactulose to Kristalose. On the morning of 01/26/17 when he was taken to the hemodialysis unit by his , he was noted to be minimally confused and while getting dialysis, he got significantly more confused and agitated. As a result of that, he was sent to the [facility] Emergency Room. 2. He continues to feel much better. The mind has cleared up and he feels that he is close to his normal self. 3. On neurological examination, at this time, he does demonstrate mild problems with memory. He also has flattening of the right nasolabial fold and a mild right VII central facial paresis. His deep tendon reflexes are globally diminished. He stands and walks with a minimally wide-base. 4. Laboratory data on my initial evaluation revealed that his ammonia was elevated to 74. His alkaline phosphatase was elevated to 164. His BUN was normal at 17, but his creatinine was elevated at 3.9. His hemoglobin was down to 11.3 and his urinalysis revealed 1+ leukocyte esterase, 0 to 2 red blood cells, and 2 to 4 white blood cells per high-power field, and a few urinary bacteria. 5. His repeat ammonia on 01/27/17 was 60[address] 6[address] The CT of the brain reveals a calcification in the left frontal area but no other pathology. 7. The patient's history, neurological examination, and laboratory data are most compatible with mild metabolic encephalopathy most probably related to hepatic and renal dysfunction. It is unclear, if his mild urinary tract infection could also be contributing to this problem. His encephalopathy is resolving. 8. He does have right nasolabial fold flattening and a mild right VII central facial paresis, which is unexplained, however intracranial pathology of significance has been excluded with a brain CT. Recommendations 1. Continue present management. 2. Continue higher dose of lactulose. 3. Treatment of renal dysfunction as per Dr. Josue. 4. Observe. 5. Increase activity as tolerated. Mercy Inman M.D., M.S.P.Judi. [facility] Jan 28, 2017 10:50
--- NOTE | 2017-01-28 11:58 | Consultation ---
DATE OF CONSULTATION: 01/27/2017 GASTROENTEROLOGY CONSULTATION CONSULTING PHYSICIAN: Josias Heard M.D. CHIEF COMPLAINT: I was asked to see this patient by Dr. Driss Noriega for evaluation of altered mental status. HISTORY OF PRESENT ILLNESS: The patient is a 62-year-old man with history of alcoholic cirrhosis, had been in dialysis and became confused and he was brought to the emergency room. The patient has had a longstanding history of cirrhosis due to alcoholism, but he has not drank for 10 years. He has been followed by [facility] at [facility] and he has reportedly been on the liver transplant list for about 10 years although he has been stable and had not been transplanted. The patient is on a stable dose of lactulose and he has not skipped any other doses. He did however, noted that has not had a good bowel movement over the last day or so prior to admission. The patient's last endoscopy was about a year ago. His colonoscopy was three years ago. He is followed by Dr. Tunde Gallo for Internal Medicine. PAST MEDICAL HISTORY: History of alcoholic cirrhosis and history of renal failure, on dialysis. PAST SURGICAL HISTORY: Status post iridectomy and extensive hemodialysis access placement. FAMILY HISTORY: Noncontributory. SOCIAL HISTORY: The patient is . He has four children. He is in the business. He does not smoke or drink alcohol although it appears he drank about 10 years ago. REVIEW OF SYSTEMS: Otherwise negative. PHYSICAL EXAMINATION: GENERAL: This is a pleasant man, seen in his room. HEENT: Normocephalic and atraumatic. Sclerae are anicteric. Oropharynx is clear. NECK: Supple. CHEST: Clear to auscultation. CARDIOVASCULAR: Regular rate. ABDOMEN: Soft. Good bowel sounds. There is no organomegaly. EXTREMITIES: No edema. LABORATORY DATA: Laboratory data noted. ASSESSMENT: This patient presents with transient decompensation of his mental status due to hepatic encephalopathy. This currently has rapidly resolved with lactulose administration. I suspect there is a degree of constipation and poor intake and therefore a making the patient more confused. He appears to be back to baseline within a less than 24-hour period. Workup will therefore will be minimized at this juncture. I would perhaps check an alpha-fetoprotein and abdominal ultrasound since the patient is at high risk for carcinoma. RECOMMENDATIONS: 1. Continue lactulose. 2. Consider if future occurrences of hepatic encephalopathy occur. 3. Check alpha-fetoprotein. 4. Check abdominal ultrasound. Thank you for asking me to participate in care of this patient. Josias Heard M.D. DR: Ericka JOB#: [id number] CC:
--- NOTE | 2017-01-28 12:00 | General Progress Note ---
Assessment/Plan Problem List: (1) Hyperammonemia ICD Codes: E72.20 - Disorder of urea cycle metabolism, unspecified SNOMED: 5803225 (2) CKD (chronic kidney disease) ICD Codes: N18.9 - Chronic kidney disease, unspecified SNOMED: 748586700 Qualifiers: Qualified Codes: N18.9 - Chronic kidney disease, unspecified (3) Altered mental status ICD Codes: R41.82 - Altered mental status, unspecified SNOMED: 869366980 Qualifiers: Qualified Codes: R41.82 - Altered mental status, unspecified (4) Hepatic encephalopathy ICD Codes: K72.90 - Hepatic failure, unspecified without coma SNOMED: 22067857 Status: progressing Assessment/Plan stable alert and ot will dc home after hd w hh needs hh for bp moniter /rn monitering Subjective ROS Limited/Unobtainable: Yes Constitutional: Reports: no symptoms Allergies: Coded Allergies: No Known Allergies (Unverified , 01/26/17) Objective Last 24 Hour Vital Signs Date Time Temp Pulse Resp B/P Pulse Ox O2 Delivery O2 Flow Rate FiO2 01/28/17 08:45 97.7 75 134/77 Room Air 01/28/17 08:45 Room Air 01/28/17 08:00 97.7 78 20 136/67 98 Room Air 01/28/17 04:00 71 01/28/17 04:00 97.3 70 20 126/65 98 Room Air 01/28/17 00:00 71 01/28/17 00:00 98.2 71 20 123/65 98 Room Air 01/27/17 20:00 88 01/27/17 20:00 98.2 82 20 127/76 98 Room Air 01/27/17 16:02 97.5 73 18 123/66 99 Room Air 01/27/17 16:00 88 01/27/17 12:00 72 Intake and Output 01/27/17 01/28/17 19:00 07:00 Intake Total 360 ml Balance 360 ml Intake Oral 360 ml Height (Feet): 5 Height (Inches): 8.00 Weight (Pounds): 170 General Appearance: alert Neck: normal alignment Cardiovascular: normal rate Respiratory/Chest: lungs clear Driss Noriega MD Jan 28, 2017 12:00
--- NOTE | 2017-01-28 12:03 | Consultation ---
Consult Note Consult Note DATE OF CONSULTATION: 01/28/2017 HEMATOLOGY CONSULTATION CONSULTING MD: Brice Harley MD REQUESTING MD: Driss Noriega MD Reason for consultation: evaluation for pancytopenia HISTORY: 62-year-old, gentleman, who does have a past history of cirrhosis of the liver associated with alcohol use and end-stage renal disease for which he is on hemodialysis. He was functioning relatively well until 2d ago when his noticed that when she was driving him to the hemodialysis unit, he was a little confused. Of note is that, he was recently changed from lactulose to Kristalose for his hepatic dysfunction. While he was getting hemodialysis, he became much more confused and agitated and as a result of that, he was sent to the [facility] Emergency Room. On being evaluated in the emergency room, he was noted to have a significant hyperammonemia. He was also noted to have anemia and hematology was consulted for further evaluation and care, anemia w/u has been reviewed at the moment. 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 FAMILY HISTORY: Nothing significant with no family history of neurological disease. PERSONAL HISTORY: Home: He lives with his . 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 Habits: He used to drink large quantities of alcohol in the past, but stopped drinking quite a few years ago. He denies the use of tobacco or illicit drugs. PRESENT MEDICATIONS: Includes Norvasc, allopurinol, lactulose, Renvela, Catapres, and Tylenol. PHYSICAL EXAM: GENERAL: He is a well-developed, well-nourished, pleasant gentleman, lying in bed, in no acute distress. VITAL SIGNS: Reviewed and are stable PULM: CTAB, no cwr CV: RRR, no mgr Abd: Soft, NT, ND Ext: no cce Labs: wbc 4.7, hgb 10.5, plt 130k Imaging: Has been reviewed ASSESSMENT: # Pancytopenia - most likely is related to cirrhosis of the liver as well as hypersplenomegaly (results are pending of us abdomen) # Anemia 2/2 chronic disease # Anemia 2/2 kidney disease, ferritin is not yet at goal which is >500, is on ferrous sulfate, started here # Cirrhosis of the liver # End-stage renal disease for which he is hemodialysis dependent # Hyperammonia - with asterixis noted # Metabolic encephalopathy RECS: 1. Monitor counts 2. Transfuse as necessary, hgb goal >7 3. Anemia w/u has been reviewed. 4. Have started ferrous sulfate and senna PRN constipation 5. US of the abdomen ordered 6. Peripheral smear is pending 7. Appreciate consultation! Brice Harley Jan 28, 2017 12:03
[2017-01-28 12:24] VITALS: BP 130/60
--- NOTE | 2017-01-28 14:23 | General Progress Note ---
Assessment/Plan Status: stable Assessment/Plan status: Encephalopathy acute due to Cirrhosis ESRD on HD HTN Anemia Plan: renal diet- Lactulose dialysis on shortly monitor BP Ok to DC after HD Subjective Date patient seen: Jan 28, 2017 Time patient seen: 09:00 ROS Limited/Unobtainable: No Allergies: Coded Allergies: No Known Allergies (Unverified , 01/26/17) Objective Last 24 Hour Vital Signs Date Time Temp Pulse Resp B/P Pulse Ox O2 Delivery O2 Flow Rate FiO2 01/28/17 12:24 97.3 77 18 130/60 Room Air 01/28/17 12:19 Room Air 01/28/17 12:00 75 01/28/17 08:45 97.7 75 134/77 Room Air 01/28/17 08:45 Room Air 01/28/17 08:00 72 01/28/17 08:00 97.7 78 20 136/67 98 Room Air 01/28/17 04:00 71 01/28/17 04:00 97.3 70 20 126/65 98 Room Air 01/28/17 00:00 71 01/28/17 00:00 98.2 71 20 123/65 98 Room Air 01/27/17 20:00 88 01/27/17 20:00 98.2 82 20 127/76 98 Room Air 01/27/17 16:02 97.5 73 18 123/66 99 Room Air 01/27/17 16:00 88 Intake and Output 01/27/17 01/28/17 19:00 07:00 Intake Total 360 ml Balance 360 ml Intake Oral 360 ml Height (Feet): 5 Height (Inches): 8.00 Weight (Pounds): 170 General Appearance: no apparent distress Objective no change in PE LILLI VELEZ Jan 28, 2017 14:23
--- NOTE | 2017-01-28 17:32 | Discharge Summary ---
Discharge Summary Hospital Course Date of Admission Jan 26, 2017 at 11:59 Date of Discharge Jan 28, 2017 at 13:37 Admitting Diagnosis AMS NEISHA Baig is a 62 year old male who was admitted on Jan 26, 2017 at 11:59 for Altered Mental Status Hospital Course [id number] Discharge Discharge Disposition Patient was discharged to Home with Home Health(06) Discharge Diagnoses: Luanne Ko NP Jan 28, 2017 17:32
--- NOTE | 2017-01-28 22:14 | General Progress Note ---
Assessment/Plan Assessment/Plan Assessment - hepatic encephalopathy - ETOH cirrhosis - ESRD Recommendations - check AFP - Check u/s - lactulose - consider Xifaxan Subjective Allergies: Coded Allergies: No Known Allergies (Unverified , 01/26/17) Subjective Feels OK getting HD tolerating PO Objective Last 24 Hour Vital Signs Date Time Temp Pulse Resp B/P Pulse Ox O2 Delivery O2 Flow Rate FiO2 01/28/17 12:24 97.3 77 18 130/60 Room Air 01/28/17 12:19 Room Air 01/28/17 12:00 75 01/28/17 08:45 97.7 75 134/77 Room Air 01/28/17 08:45 Room Air 01/28/17 08:00 72 01/28/17 08:00 97.7 78 20 136/67 98 Room Air 01/28/17 04:00 71 01/28/17 04:00 97.3 70 20 126/65 98 Room Air 01/28/17 00:00 71 01/28/17 00:00 98.2 71 20 123/65 98 Room Air Intake and Output 01/27/17 01/28/17 19:00 07:00 Intake Total 360 ml Balance 360 ml Intake Oral 360 ml Height (Feet): 5 Height (Inches): 8.00 Weight (Pounds): 170 Objective WDWN NCAT supple CTA RRR soft ND NT no edema CELIO POWELL Jan 28, 2017 22:14
--- NOTE | 2017-01-28 23:58 | Discharge Summary 2 SIG ---
DATE OF ADMISSION: 01/26/2017 DATE OF DISCHARGE: 01/28/2017 CONSULTANTS: 1. Jimmy Josue M.D. 2. Brice Harley M.D. 3. Jose Major M.D. 4. Josias Heard M.D. BRIEF HOSPITAL COURSE: The patient is a 62-year-old male, who presented to ED due to altered mental status. The patient was brought in by EMS. The patient had altered mental status after hemodialysis and reportedly had elevated ammonia level. He has history of liver cirrhosis secondary to alcohol, portal hypertension, gout and is on oral daily lactulose. He has chronic kidney disease secondary to IgA nephropathy. On evaluation at ED, he presented with elevated ammonia level. EKG was sinus rhythm. Chest x-ray showed no congestion. Urine toxicology was negative. He was followed by Dr. Josue for dialysis management and was seen by Dr. Major findings compatible with mild metabolic encephalopathy probably related to hepatic and renal dysfunction. CT of the brain revealed calcification in the left frontal area, but no other pathology. Dr. Heard was consulted for hepatic encephalopathy which resolved with lactulose administration. Dr. Harley was consulted for evaluation of pancytopenia which was assessed to be most likely related to cirrhosis as well as hyper splenomegaly. Anemia was assessed to be secondary to chronic disease and to kidney disease. He was eventually discharged home with home health. FINAL DIAGNOSES: 1. Acute hepatic encephalopathy. 2. End-stage renal disease, on hemodialysis. 3. Pancytopenia. 4. Hypertension. 5. Anemia of chronic disease. 6. Anemia of kidney disease. 7. Liver cirrhosis. Driss Noriega M.D. I have been assigned to dictate discharge summary on this account and I was not involved in the patient's management. Luanne Ko N.P. DR: Nghia JOB#: [id number] CC: LANETTE
[2017-01-29 08:11] LABS: VITAMIN D 25-OH TOTAL 33 ng/mL (.)
--- NOTE | 2017-01-29 09:48 | Diagnostic Imaging Report ---
APPROVED REPORT CPT Code: 33102 Present Symptoms Comments: R/O DVT BILATERAL: Imaging reveals a patent deep venous system bilaterally. There is no evidence of thrombus within the femoral, popliteal or tibial segments. The greater saphenous veins are also within normal limits. Doppler indicates normal spontaneous flow within these segments.
== END 2017-01-28 13:37 | disposition home health service (06) | DRG 441 ==
LOC: EDBD 10:37 → EMR 11:55 → 2E 11:59 → EDBEDREQ 14:18 → 2E 17:01
DX: K72.90 Hepatic failure, unspecified without coma (principal); N18.6 End stage renal disease; G93.41 Metabolic encephalopathy; D61.818 Other pancytopenia; I12.0 Hypertensive chronic kidney disease with stage 5 chronic kidney disease or end stage renal disease; K70.30 Alcoholic cirrhosis of liver without ascites; Z99.2 Dependence on renal dialysis; M10.9 Gout, unspecified; G40.909 Epilepsy, unspecified, not intractable, without status epilepticus; D64.9 Anemia, unspecified; M81.0 Age-related osteoporosis without current pathological fracture
CPT/HCPCS: 36415; 70450; 71010; 80053; 80061; 80300; 81003; 82140; 82248; 82306; 82550; 82553; 82607; 82728; 82746; 82977; 83036; 83540; 83550; 83735; 84100; 84443; 84484; 84550; 85025; 85651; 86592; 93005; 93970